=== PATIENT | female | born 1975 | race Caucasian/White ===

== ENCOUNTER 2021-12-06 14:57 | Emergency (ER) | payer OTHER ==
[2021-12-06 15:34] VITALS: BP 158/100; TEMP 99; BMI 24.3
[2021-12-06] MEDS ORDERED: SODIUM CHLORIDE 0.9% 1000 ML INFUS.BAG IV ONE (15:43)
[2021-12-06 16:33] LABS: HEMATOCRIT 39.6 % (32.4-45.2); MCH 31.4 pg (25.7-33.7); MCHC 35.2 g/dl (32.0-36.0); MEAN CELL VOLUME 89.1 fl (80-96); MEAN PLT VOLUME 7.3 fl (7.5-11.1); PLATELET COUNT 339.6 10^3/uL (134-434); RBC 4.44 10^6/uL (3.60-5.2); RDW 13.1 % (11.6-15.6); WHITE BLOOD COUNT 9.4 10^3/uL (4.0-10.8)
[2021-12-06 16:59] LABS: ALBUMIN 3.8 g/dl (3.4-5.0); BILIRUBIN,TOTAL 0.9 mg/dl (0.2-1); CALCIUM 11.4 mg/dl (8.5-10); CREATININE 0.7 mg/dl (0.55-1.3); TOT PROT 8.1 g/dl (6.4-8.2)
[2021-12-06 17:28] VITALS: PULSE 89; RESP 16
[2021-12-06 17:32] LABS: PLATELET ESTIMATE ADEQUATE
== END 2021-12-06 17:47 | disposition home or self-care (01) ==
LOC: FER 14:57
DX: R53.1 Weakness (principal)
CPT/HCPCS: 36415; 70450-TC; 80053; 80164; 83735; 85025; 93005; 99285-25

== ENCOUNTER 2021-12-19 15:59 | Inpatient (IN) | payer OTHER ==
[2021-12-19] MEDS ORDERED: ACETAMINOPHEN 1000 MG/100 ML BAG IVPB ONE (17:01)
[2021-12-19] MEDS ORDERED: ACETAMINOPHEN INJECTION 100 ML IVPB ONE (18:04)
[2021-12-19 18:08] LABS: HEMATOCRIT 39.6 % (32.4-45.2); HEMOGLOBIN 14.2 G/dL (10.7-15.3); MCH 31.9 pg (25.7-33.7); MCHC 35.7 g/dl (32.0-36.0); MEAN CELL VOLUME 89.3 fl (80-96); MEAN PLT VOLUME 7.7 fl (7.5-11.1); PLATELET COUNT 250.2 10^3/uL (134-434); RBC 4.44 10^6/uL (3.60-5.2); RDW 12.9 % (11.6-15.6); WHITE BLOOD COUNT 8.4 10^3/uL (4.0-10.8)
[2021-12-19 18:21] LABS: ALBUMIN 3.3 g/dl (3.4-5.0); ALK PHOS 121 U/L (45-117); ANION GAP 8 MMOL/L (8-16); BILIRUBIN,TOTAL 0.7 mg/dl (0.2-1); CALCIUM 12.4 mg/dl (8.5-10); CHLORIDE 98 mmol/L (98-107); CO2 31 mmol/L (21-32); CREATININE 0.8 mg/dl (0.55-1.3); GLUCOSE,RANDOM 93 mg/dl (74-106); SGOT/AST 29 U/L (15-37); SGPT/ALT 14 U/L (13-61); SODIUM 137 mmol/L (136-145); TOT PROT 7.3 g/dl (6.4-8.2)
[2021-12-19 20:08] LABS: MAGNESIUM 1.8 mg/dL (1.8-2.4); PHOSPHOROUS 2.3 mg/dl (2.5-4.9)
[2021-12-19 20:10] LABS: MAGNESIUM 2.1 mg/dL (1.8-2.4)
[2021-12-19 20:14] LABS: CHOLESTEROL 211 mg/dL (50-200); PHOSPHOROUS 2.2 mg/dL (2.5-4.9); TRIGLYCERIDES 267 mg/dL (0-150)
[2021-12-19 20:15] LABS: LDL CHOLESTEROL (ONLY SJRH) 135 mg/dL (5-100)
[2021-12-19 20:17] LABS: HDL CHOLESTEROL 30 mg/dL (40-60)
[2021-12-19] MEDS: DIVALPROEX NA *ER* EXTEND REL 500 MG TABLET.SA (FP) PO SCH (21:20)
[2021-12-19] MEDS: OLANZapine 2.5 MG TABLET PO SCH (21:22)
[2021-12-19] MEDS ORDERED: DIVALPROEX SODIUM 250 MG TABLET E.C. PO SCH (22:00)
[2021-12-19 23:09] VITALS: BMI 23.9
[2021-12-20] MEDS: CEFTRIAXONE 1 GM in DEXTROSE 5%-WATER - 50 ML IVPB SCH (10:30)
[2021-12-20 11:24] LABS: CALCIUM 11.3 mg/dl (8.5-10); CREATININE 0.6 mg/dl (0.55-1.3)
[2021-12-20 11:49] LABS: BILIRUBIN,TOTAL 0.7 mg/dl (0.2-1); TOT PROT 6.9 g/dl (6.4-8.2)
[2021-12-20 11:50] LABS: BILIRUBIN,DIRECT 0.1 mg/dL (0.0-0.2)
[2021-12-20 12:55] LABS: BASO % 0.3 % (0-2.0); EOS % 1.4 % (0-4.5); HEMATOCRIT 33.9 % (32.4-45.2); HEMOGLOBIN 11.7 GM/dL (10.7-15.3); LYMPH % 25.9 % (8-40); MCH 30.7 pg (25.7-33.7); MCHC 34.6 g/dl (32.0-36.0); MEAN CELL VOLUME 88.7 fl (80-96); MEAN PLT VOLUME 7.7 fl (7.5-11.1); MONO % 7.9 % (3.8-10.2); NEUT % 64.5 % (42.8-82.8); PLATELET COUNT 263 10^3/uL (134-434); RBC 3.83 M/mm3 (3.60-5.2); RDW 13.2 % (11.6-15.6); WHITE BLOOD COUNT 6.5 K/mm3 (4.0-10.0)
[2021-12-20] MEDS: DIVALPROEX NA *ER* EXTEND REL 500 MG TABLET.SA (FP) PO SCH (21:44)
[2021-12-20] MEDS: OLANZapine 2.5 MG TABLET PO SCH (21:45)
[2021-12-21] MEDS: HEPARIN NA (PORCINE) 5,000 UNITS/ML 1ML VIAL SQ SCH ×3 (05:09→21:32)
[2021-12-21 10:10] LABS: CARCINOEMBRYONIC ANTIGEN 11.7 ng/mL (0.0-4.7)
[2021-12-21] MEDS: CEFTRIAXONE 1 GM in DEXTROSE 5%-WATER - 50 ML IVPB SCH (10:47)
[2021-12-21] MEDS: OLANZapine 2.5 MG TABLET PO SCH (21:31)
[2021-12-21] MEDS: DIVALPROEX NA *ER* EXTEND REL 500 MG TABLET.SA (FP) PO SCH (21:32)
[2021-12-22] MEDS: HEPARIN NA (PORCINE) 5,000 UNITS/ML 1ML VIAL SQ SCH ×3 (06:40→22:26)
[2021-12-22] MEDS: CEFTRIAXONE 1 GM in DEXTROSE 5%-WATER - 50 ML IVPB SCH (09:42)
[2021-12-22] MEDS: DEXAMETHASONE SOD PHOSPHATE 4 MG/1 ML VIAL IVPUSH SCH ×2 (12:46→17:25)
[2021-12-22 13:11] LABS: BASO % 0.8 % (0-2.0); HEMATOCRIT 38.2 % (32.4-45.2); LYMPH % 33.4 % (8-40); MCH 30.2 pg (25.7-33.7); MCHC 33.9 g/dl (32.0-36.0); MEAN PLT VOLUME 8.2 fl (7.5-11.1); MONO % 6.1 % (3.8-10.2); NEUT % 57.7 % (42.8-82.8); PLATELET COUNT 310 10^3/uL (134-434); RBC 4.29 M/mm3 (3.60-5.2); RDW 12.9 % (11.6-15.6); WHITE BLOOD COUNT 6.9 K/mm3 (4.0-10.0)
[2021-12-22 13:27] LABS: BLOOD UREA NITROGEN 14.2 mg/dL (7-18); CALCIUM 12.3 mg/dL (8.5-10.1)
[2021-12-22 13:31] LABS: CREATININE 0.7 mg/dL (0.55-1.3)
[2021-12-22 13:32] LABS: BILIRUBIN,TOTAL 0.3 mg/dL (0.2-1); TOT PROT 7.5 g/dl (6.4-8.2)
[2021-12-22] MEDS: DIVALPROEX NA *ER* EXTEND REL 500 MG TABLET.SA (FP) PO SCH (22:26)
[2021-12-22] MEDS: OLANZapine 2.5 MG TABLET PO SCH (22:37)
[2021-12-23] MEDS: DEXAMETHASONE SOD PHOSPHATE 4 MG/1 ML VIAL IVPUSH SCH ×3 (03:56→17:06)
[2021-12-23] MEDS: HEPARIN NA (PORCINE) 5,000 UNITS/ML 1ML VIAL SQ SCH (05:41)
[2021-12-23] MEDS: CEFTRIAXONE 1 GM in DEXTROSE 5%-WATER - 50 ML IVPB SCH (09:36)
[2021-12-23 10:38] VITALS: RESP 18
[2021-12-23 13:13] LABS: INR 1.06 (0.83-1.09); PROTHROMBIN TIME (PATIENT) 12.2 SEC (9.7-13.0)
[2021-12-23 18:26] LABS: BF WBC & OTHER NUCLEATED CELLS 240 /mm3
[2021-12-23 18:41] LABS: BODY FLUID MACROPHAGES 55 %; BODY FLUID MESOTHELIAL 9 %; BODY FLUID MONOCYTE 4 %
[2021-12-23] MEDS: DIVALPROEX NA *ER* EXTEND REL 500 MG TABLET.SA (FP) PO SCH (21:51)
[2021-12-23] MEDS: OLANZapine 2.5 MG TABLET PO SCH (22:17)
[2021-12-24] MEDS: DEXAMETHASONE SOD PHOSPHATE 4 MG/1 ML VIAL IVPUSH SCH (02:38)
[2021-12-24 02:39] VITALS: BP 123/81; PULSE 77; TEMP 98.4
[2021-12-26 16:07] LABS: BODY FLUID ALBUMIN 3.3 g/dL (Not Estab.)
== END 2021-12-24 05:50 | disposition short-term general hospital (02) | DRG 755 ==
LOC: FER 15:59 → FM/S 18:45 → OBSVTOIN 18:45 → FM/S 19:53 → J7W 12-20 13:41
PROVIDERS: ADMIT Internal Medicine
PROC: 0W9G3ZX Drainage of Peritoneal Cavity, Percutaneous Approach, Diagnostic (ICD-10-PCS; principal; 2021-12-23)
DX: C56.1 Malignant neoplasm of right ovary (principal); C78.6 Secondary malignant neoplasm of retroperitoneum and peritoneum; C78.7 Secondary malignant neoplasm of liver and intrahepatic bile duct; C79.51 Secondary malignant neoplasm of bone; R18.8 Other ascites; F25.9 Schizoaffective disorder, unspecified; M51.36 Other intervertebral disc degeneration, lumbar region; F31.9 Bipolar disorder, unspecified
CPT/HCPCS: 0241U-QW; 36415; 70450-TC; 72131-TC; 72146-TC; 72148-TC; 76942-TC; 80048; 80053; 80061; 80076; 80164; 82042; 82105; 82150; 82378; 82465; 82607; 82746; 82945; 83036; 83615; 83735; 83986; 84100; 84157; 84439; 84443; 84478; 85025; 85027; 85610; 86140; 86301; 86304; 86780; 87070; 87075; 87102; 87116; 87205; 87206; 87210; 88108; 88305-TC; 88341-TC; 97116-GP; 97161-GP; 99285-25; C9803-CS; J1644; U0003; U0005